=== PATIENT | male | born 1985 | race Caucasian/White ===

== ENCOUNTER 2017-08-02 11:16 | Emergency (ER) | payer OTHER ==
[~2017-08-02] VITALS: Ht 182.9 cm; Wt 136.1 kg
[~2017-08-02 11:16] MED LIST: HYDR-963 PO; PRED20TA PO
--- NOTE | 2017-08-02 12:35 | RAD ---
Chest radiograph and right rib series 08/02/2017 2:03 PM Indication: Right rib injury Comparison: None available Technique: Frontal view of the chest and 3 dedicated views of the right ribs are provided. Findings: Cardiomediastinal silhouette is within normal limits. No pleural effusions, pulmonary vascular congestion or pneumothorax. The lungs are clear. Osseous structures are normal. There are 12 paired ribs. No periosteal reaction. No acutely displaced right-sided rib fracture. Impression: 1. No acute cardiopulmonary process. 2. No acutely displaced right-sided rib fracture.
[2017-08-02] MEDS ORDERED: CYCL-331 PO (12:48)
--- NOTE | 2017-08-02 12:48 | PHYS DOC ---
Past History Past Medical History: No Pertinent History Past Surgical History: Other Smoking: Non-smoker Alcohol Use: Occasionally Drug Use: None Adult General Chief Complaint Chief Complaint: RIB PAIN HPI HPI Patient is a 32 year old male who presents with complaint of right-sided rib pain. Patient states that he suffered a fall approximately one week ago and fell onto his right elbow which went into the right side of his chest. Patient states that he felt that he probably bruised his ribs at the time, however he states that he is still having significant pain on the side and is concerned he may have broken a rib. The patient states he's been taking ibuprofen with no relief in symptoms. Patient rates his pain currently 6 out of 10. Patient states that the symptoms worse when he takes a deep breath and with movement. Patient denies any other health problems and takes no other medications. The patient came to the emergency department for evaluation to make sure he doesn't have a serious injury to his ribs. Review of Systems Review of Systems Constitutional: Denies fever or chills [] Eyes: Denies change in visual acuity, redness, or eye pain [] HENT: Denies nasal congestion or sore throat [] Respiratory: Denies cough or shortness of breath [] Cardiovascular: Denies substernal chest pain or edema[] GI: Denies abdominal pain, nausea, vomiting, bloody stools or diarrhea [] : Denies dysuria or hematuria [] Musculoskeletal: Right-sided chest wall pain[] Integument: Denies rash or skin lesions [] Neurologic: Denies headache, focal weakness or sensory changes [] Allergies Allergies Allergies Coded Allergies Type Severity Reaction Last Updated Verified acetaminophen Allergy Intermediate rash 05/02/17 Yes oxycodone Allergy Intermediate rash 05/02/17 Yes Physical Exam Physical Exam Constitutional: Alert, afebrile, appears in moderate discomfort. [] HENT: Normocephalic, atraumatic, bilateral external ears normal, oropharynx moist, no oral exudates, nose normal. [] Eyes: PERRLA, EOMI, conjunctiva normal, no discharge. [] Neck: Normal range of motion, no tenderness, supple, no stridor. [] Cardiovascular:Heart rate regular rhythm, no murmur [] Lungs & Thorax: Bilateral breath sounds clear to auscultation, right anterolateral chest wall tenderness to palpation near costochondral junction at level of ninth and 10th ribs, no crepitus on palpation, no subcutaneous emphysema [] Abdomen: Bowel sounds normal, soft, no tenderness, no masses, no pulsatile masses. [] Skin: Warm, dry, no erythema, no rash. [] Back: No tenderness, no CVA tenderness. [] Extremities: No tenderness, no cyanosis, no clubbing, ROM intact, no edema. [] Neurologic: Alert and oriented X 3, normal motor function, normal sensory function, no focal deficits noted. [] Current Patient Data Vital Signs Vital Signs Date Time Temp Pulse Resp B/P (MAP) Pulse Ox O2 Delivery O2 Flow Rate FiO2 08/02/17 11:16 98.1 108 18 96 Room Air Lab Results None performed EKG EKG Not performed[] Radiology/Procedures Radiology/Procedures [address] [address] IMAGING REPORT Signed PATIENT: NAVEEN BOONE ACCOUNT: [id number] : 1985 LOCATION: ER AGE: 32 SEX: M EXAM STATUS: PRE ER ORD. PHYSICIAN: ASMITA BERG MD REASON: right rib injury one week ago PROCEDURE: RIBS RIGHT AND PA CHEST Chest radiograph and right rib series 08/02/2017 2:03 PM Indication: Right rib injury Comparison: None available Technique: Frontal view of the chest and 3 dedicated views of the right ribs are provided. Findings: Cardiomediastinal silhouette is within normal limits. No pleural effusions, pulmonary vascular congestion or pneumothorax. The lungs are clear. Osseous structures are normal. There are 12 paired ribs. No periosteal reaction. No acutely displaced right-sided rib fracture. Impression: 1. No acute cardiopulmonary process. 2. No acutely displaced right-sided rib fracture. DICTATED AND SIGNED BY: JASPER CELESTE MD DATE: 08/02/17 1236 CC: ASMITA BERG MD; FABIEN BEATTY MD ~ [] Course & Med Decision Making Course & Med Decision Making Pertinent Labs and Imaging studies reviewed. (See chart for details) Patient's x-rays were negative for displaced fracture. Patient's symptoms appear consistent with acute chest wall contusion with possible costochondritis. Advised patient to continue on ibuprofen. Patient was prescribed Flexeril to take for muscle spasms of the chest to help decrease pain. Advise follow-up in one week if symptoms are not improving and return to emergency department for any worsening symptoms. Patient voiced understanding and in agreement with treatment plan. Dragon Disclaimer Dragon Disclaimer This chart was dictated in whole or in part using Voice Recognition software in a busy, high-work load, and often noisy Emergency Department environment. It may contain unintended and wholly unrecognized errors or omissions. Departure Departure: Impression: Primary Impression: Right-sided chest wall pain Disposition: HOME, SELF-CARE Condition: STABLE Referrals: FABIEN BEATTY MD (PCP) Patient Instructions: Chest Wall Pain Additional Instructions: Follow-up with your primary doctor in 1-2 weeks if symptoms do not improve. Please return to the emergency department for any worsening symptoms. Scripts Cyclobenzaprine Hcl (CYCLOBENZAPRINE HCL) 10 Mg Tablet 1 TAB PO TID Y for MUSCLE PAIN, #30 TAB Prov: ASMITA BERG MD 08/02/17 ASMITA BERG MD Aug 02, 2017 12:48
[2017-08-02 13:20] VITALS: BP 150/96
== END 2017-08-02 13:20 | disposition home or self-care (01) ==
LOC: ER 11:16
DX: S20.211A Contusion of right front wall of thorax, initial encounter (principal); Z88.5 Allergy status to narcotic agent; Z88.6 Allergy status to analgesic agent; W19.XXXA Unspecified fall, initial encounter; Y93.89 Activity, other specified; Y99.8 Other external cause status; Y92.89 Other specified places as the place of occurrence of the external cause
CPT/HCPCS: 71101; 99284

== ENCOUNTER → 2019-12-04 | Outpatient (CLI) | payer BC ==
[~2019-12-04] MED LIST changes: +CYCL-331 PO; +HYDR-3136 PO; -HYDR-963 PO
--- NOTE | 2019-12-04 14:53 | RAD ---
Left ankle radiographs History: Left foot and ankle pain Comparison: None. Findings: 3 views of the left ankle are submitted. No acute fracture or dislocation is identified. Tibiotalar joint space is maintained. Impression: 1. No acute osseous abnormality is identified by radiographs. Electronically signed by: Delvsi Horton MD (12/04/2019 2:50 PM) [id number]
--- NOTE | 2019-12-04 15:17 | RAD ---
EXAM: Left foot, 2 views. HISTORY: Pain. COMPARISON: Correlation is made with ankle radiographs obtained on the same date. FINDINGS: 2 views of the left foot are obtained. There is no fracture, dislocation or subluxation. IMPRESSION: No acute osseous finding. Electronically signed by: Jayne Jones MD (12/04/2019 3:14 PM) [id number]
== END | disposition home or self-care (01) ==
LOC: PMG 14:28
PROVIDERS: ATTEND Registered Nurse
DX: M25.572 Pain in left ankle and joints of left foot (principal); M79.672 Pain in left foot
CPT/HCPCS: 73600; 73620

== ENCOUNTER → 2020-12-02 | Outpatient (CLI) | payer BC ==
[2020-12-02 15:28] LABS: ALBUMIN 3.7 g/dL (3.4-5.0); DIRECT BILIRUBIN 0.1 mg/dL (0.0-0.2); TOTAL BILIRUBIN 0.3 mg/dL (0.2-1.0); TOTAL PROTEIN 7.7 g/dL (6.4-8.2)
== END ==
LOC: LAB 14:25
PROVIDERS: ATTEND Internal Medicine Gastroenterology
DX: K85.90 Acute pancreatitis without necrosis or infection, unspecified (principal)
CPT/HCPCS: 36415; 80076; 82150; 83690